=== PATIENT | male | born 1955 | race Caucasian/White ===

== ENCOUNTER 2020-01-21 13:49 | Emergency (ER) | payer OTHER ==
[2020-01-21] MEDS ORDERED: Ketorolac 60 MG/2 ML SDV IM ONE (14:41)
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
[2020-01-21] MEDS ORDERED: Lidocaine 5% 700 MG Patch TOP ONE (15:07)
--- NOTE | 2020-01-22 10:53 | CR ---
Ribs 3V wo Chest Rt CLINICAL HISTORY: Back and rib pain FINDINGS: There are slightly angulated fractures of the right sixth through eighth ribs. A ninth rib fracture is not excluded There is no pleural thickening or pneumothorax identified. IMPRESSION: Fractures of the right sixth through eighth ribs
== END 2020-01-21 15:38 | disposition home or self-care (01) ==
LOC: JP.ED 13:49
DX: S22.41XA Multiple fractures of ribs, right side, initial encounter for closed fracture (principal); F17.210 Nicotine dependence, cigarettes, uncomplicated; W22.8XXA Striking against or struck by other objects, initial encounter
CPT/HCPCS: 71101; 96372; 99284; A9270; J1885